=== PATIENT | male | born 1990 | race Caucasian/White ===

== ENCOUNTER 2021-05-31 11:03 | Emergency (ER) | payer OTHER ==
[~2021-05-31] VITALS: Ht 175.3 cm; Wt 94.8 kg
[2021-05-31 11:05] VITALS: BP_SYST 140
[2021-05-31 12:16] VITALS: BP_SYST 140
== END 2021-05-31 12:19 | disposition home or self-care (01) ==
LOC: SED 11:03
DX: S61.012A Laceration without foreign body of left thumb without damage to nail, initial encounter (principal); W29.8XXA Contact with other powered hand tools and household machinery, initial encounter; Y93.89 Activity, other specified; Y92.89 Other specified places as the place of occurrence of the external cause; Y99.0 Civilian activity done for income or pay
CPT/HCPCS: 73140-TC; 99283

== ENCOUNTER 2021-05-31 14:35 | Emergency (ER) | payer OTHER ==
[~2021-05-31] VITALS: Ht 175.3 cm; Wt 90.7 kg
[2021-05-31 15:20] VITALS: BP_SYST 140
[2021-05-31 15:55] VITALS: BP_SYST 140
== END 2021-05-31 15:55 | disposition home or self-care (01) ==
LOC: SED 14:35
DX: S61.012D Laceration without foreign body of left thumb without damage to nail, subsequent encounter (principal); W31.9XXD Contact with unspecified machinery, subsequent encounter
CPT/HCPCS: 99282